=== PATIENT | male | born 2000 | race Caucasian/White ===

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

== ENCOUNTER 2021-01-29 17:12 | Emergency (ER) | payer OTHER ==
[~2021-01-29] VITALS: Ht 175.3 cm; Wt 65.4 kg
[2021-01-29 17:13] VITALS: BP 121/75
== END 2021-01-29 19:23 | disposition left against medical advice (07) ==
LOC: M ED 17:12
DX: Z53.21 Procedure and treatment not carried out due to patient leaving prior to being seen by health care provider (principal)

== ENCOUNTER → 2021-08-23 | Outpatient (CLI) | payer OTHER, MEDICAID | LOC: M LABSMTC 10:01 | PROVIDERS: ATTEND Anesthesiology | DX: Z01.812 Encounter for preprocedural laboratory examination (principal); Z20.822 Contact with and (suspected) exposure to COVID-19 ==

== ENCOUNTER 2021-08-28 10:57 | Day surgery (SDC) | payer OTHER ==
[~2021-08-28] VITALS: Ht 175.3 cm; Wt 60.8 kg
[2021-08-28] MEDS ORDERED: propofoL 200 MG/20 ML VIAL As Ordered ONE ×2 (11:39→12:31)
[2021-08-28] MEDS ORDERED: LIDOCAINE 2% 100MG/5ML SDV (FOR ANES.) As Ordered ONE ×2 (11:40→12:08)
[2021-08-28] MEDS ORDERED: propofoL 500 MG/50 ML VIAL As Ordered ONE ×2 (12:33→13:05)
[2021-08-28] MEDS ORDERED: NS 1,000 ML IV ONE (13:00)
[2021-08-28 14:21] VITALS: BP 104/67
== END 2021-08-28 14:24 | disposition home or self-care (01) ==
LOC: M OPP 10:57
PROVIDERS: ATTEND Internal Medicine Gastroenterology
DX: K64.8 Other hemorrhoids (principal); K92.1 Melena; R63.4 Abnormal weight loss; K29.70 Gastritis, unspecified, without bleeding; Z91.013 Allergy to seafood; Z91.048 Other nonmedicinal substance allergy status

== ENCOUNTER 2021-11-21 22:51 | Emergency (ER) | payer OTHER ==
[~2021-11-21] VITALS: Ht 177.8 cm; Wt 61.8 kg
[2021-11-21 22:52] VITALS: BP 136/91
[2021-11-22 00:10] LABS: ALBUMIN 4.9 GM/DL (3.2-5.2); ALT/SGPT 17 U/L (12-78); BILIRUBIN,DIRECT 0.2 MG/DL (0.0-0.2); BILIRUBIN,TOTAL 0.7 MG/DL (0.2-1.0); BLOOD UREA NITROGEN 12 MG/DL (7-18); CALCIUM LEVEL 10.1 MG/DL (8.5-10.1); CARBON DIOXIDE LEVEL 28 MEQ/L (21-32); CHLORIDE LEVEL 105 MEQ/L (98-107); CREATININE FOR GFR 0.96 MG/DL (0.70-1.30); GLUCOSE, FASTING 94 MG/DL (70-100); LIPASE 115 U/L (73-393); SODIUM LEVEL 140 MEQ/L (136-145); TOTAL PROTEIN 8.3 GM/DL (6.4-8.2)
[2021-11-22 00:28] LABS: BASO # 0.1 10^3/uL (0.0-0.2); BASO % 0.6 % (0.0-1.0); HEMATOCRIT 48.3 % (42.0-52.0); HEMOGLOBIN 16.5 g/dl (13.5-17.5); LYMPH # 1.9 10^3/uL (1.5-5.0); LYMPH % 18.9 % (24.0-44.0); MEAN CORPUSCULAR HEMOGLOBIN 29.7 pg (27.0-33.0); MEAN CORPUSCULAR HGB CONC 34.2 g/dl (32.0-36.5); MONO # 0.8 10^3/uL (0.0-0.8); MONO % 7.6 % (2.0-8.0); NEUTROPHILS # 7.3 10^3/uL (1.5-8.5); NEUTROPHILS % 72.7 % (36.0-66.0); PLATELET COUNT, AUTOMATED 223 10^3/uL (150-450); RED BLOOD COUNT 5.55 10^6/uL (4.30-6.10); WHITE BLOOD COUNT 10.1 10^3/uL (4.0-10.0)
[2021-11-22] MEDS ORDERED: ONDA4TAB6 PO (11:55)
== END 2021-11-22 01:05 | disposition left against medical advice (07) ==
LOC: M ED 22:51
DX: Z53.21 Procedure and treatment not carried out due to patient leaving prior to being seen by health care provider (principal)

== ENCOUNTER 2021-11-22 06:50 | Emergency (ER) | payer OTHER ==
[~2021-11-22] VITALS: Ht 170.2 cm; Wt 61.4 kg
[2021-11-22 06:52] VITALS: BP 129/75
[2021-11-22] MEDS ORDERED: NS 1,000 ML IV ONE (09:10)
[2021-11-22] MEDS ORDERED: ONDANSETRON 4MG/2ML VIAL IV ONE (09:10)
[2021-11-22] MEDS ORDERED: KETOROLAC 30 MG/ML 1ML VIAL IV ONE (09:25)
[2021-11-22 09:50] LABS: BASO # 0.1 10^3/uL (0.0-0.2); BASO % 0.8 % (0.0-1.0); HEMOGLOBIN 16.4 g/dl (13.5-17.5); LYMPH # 1.2 10^3/uL (1.5-5.0); LYMPH % 16.1 % (24.0-44.0); MEAN CORPUSCULAR HEMOGLOBIN 29.4 pg (27.0-33.0); MEAN CORPUSCULAR HGB CONC 34.2 g/dl (32.0-36.5); MEAN CORPUSCULAR VOLUME 86.2 fl (80.0-96.0); MONO # 0.7 10^3/uL (0.0-0.8); MONO % 8.9 % (2.0-8.0); NEUTROPHILS # 5.5 10^3/uL (1.5-8.5); NEUTROPHILS % 73.9 % (36.0-66.0); PLATELET COUNT, AUTOMATED 212 10^3/uL (150-450); RED BLOOD COUNT 5.57 10^6/uL (4.30-6.10); WHITE BLOOD COUNT 7.4 10^3/uL (4.0-10.0)
[2021-11-22 10:17] LABS: ALBUMIN 4.9 GM/DL (3.2-5.2); ALT/SGPT 16 U/L (12-78); BILIRUBIN,DIRECT 0.2 MG/DL (0.0-0.2); BILIRUBIN,TOTAL 0.7 MG/DL (0.2-1.0); BLOOD UREA NITROGEN 14 MG/DL (7-18); CALCIUM LEVEL 10.3 MG/DL (8.5-10.1); CARBON DIOXIDE LEVEL 27 MEQ/L (21-32); CHLORIDE LEVEL 104 MEQ/L (98-107); CREATININE FOR GFR 0.91 MG/DL (0.70-1.30); GLUCOSE, FASTING 82 MG/DL (70-100); POTASSIUM SERUM 3.9 MEQ/L (3.5-5.1); SODIUM LEVEL 140 MEQ/L (136-145); TOTAL PROTEIN 8.2 GM/DL (6.4-8.2)
[2021-11-22 10:31] LABS: ERYTHROCYTE SEDIMENTATION RATE 1 mm/hr (0-15)
[2021-11-22] MEDS ORDERED: ISOVUE-370 76% 100ML VIAL As Ordered ONE (11:12)
[2021-11-22] MEDS ORDERED: ONDA4TAB6 PO (11:55)
== END 2021-11-22 13:46 | disposition home or self-care (01) ==
LOC: M ED 06:50
DX: R10.9 Unspecified abdominal pain (principal); F17.290 Nicotine dependence, other tobacco product, uncomplicated; F12.10 Cannabis abuse, uncomplicated; Z91.89 Other specified personal risk factors, not elsewhere classified; Z91.013 Allergy to seafood
CPT/HCPCS: 71046; 74177; 80048; 80076; 85025; 85652; 86140; 93005; 96361; 96374; 96375; 99284; J1885; J2405; Q9967

== ENCOUNTER → 2025-06-15 | Outpatient (REF) | payer OTHER ==
[~2025-06-15] MED LIST changes: +ONDA-282 PO
[2025-06-15 12:49] LABS: APPEARANCE, URINE CLEAR (CLEAR); BACTERIA, URINE AUTO NEGATIVE (NEGATIVE); BILIRUBIN, URINE AUTO NEGATIVE (NEGATIVE); BLOOD, URINE BLOOD NEGATIVE (NEGATIVE); GLUCOSE, URINE (UA) AUTO NEGATIVE (NEGATIVE); KETONE, URINE AUTO NEGATIVE (NEGATIVE); LEUKOCYTE ESTERASE, URINE AUTO NEGATIVE (NEGATIVE); MUCUS, URINE MODERATE (NEGATIVE); NITRITE, URINE AUTO NEGATIVE (NEGATIVE); PROTEIN, URINE AUTO NEGATIVE (NEGATIVE); RBC, URINE AUTO 0 /HPF (0-3); SPECIFIC GRAVITY URINE AUTO 1.027 (1.002-1.035); SQUAMOUS EPITHELIAL CELL UR AU 0 /HPF (0-6); UROBILINOGEN, URINE AUTO 0.2 mg/dL (0.0-2.0); WBC, URINE AUTO 0 /HPF (0-3)
[2025-06-15 14:34] LABS: BASO # 0.1 10^3/uL (0.0-0.2); BASO % 0.9 % (0.0-1.0); EOS # 0.1 10^3/uL (0.0-0.5); EOS % 0.9 % (0.0-3.0); LYMPH # 2.2 10^3/uL (1.5-5.0); LYMPH % 29.3 % (24.0-44.0); MONO # 0.6 10^3/uL (0.0-0.8); MONO % 8.4 % (2.0-8.0); NEUTROPHILS # 4.5 10^3/uL (1.5-8.5); NEUTROPHILS % 60.2 % (36.0-66.0); PLATELET COUNT, AUTOMATED 232 10^3/uL (150-450)
[2025-06-15 14:54] LABS: ALT/SGPT 25 U/L (7.0-40); AST/SGOT 20 U/L (<34); CALCIUM LEVEL 9.2 MG/DL (8.5-10.1); CARBON DIOXIDE LEVEL 32 MMOL/L (20-31); CHLORIDE LEVEL 107 MMOL/L (98-107); CREATININE FOR GFR 0.75 MG/DL (0.70-1.30); GLOMERULAR FILTRATION RATE > 90.0 (>60); POTASSIUM SERUM 4.5 MMOL/L (3.5-5.1); SODIUM LEVEL 143 MMOL/L (136-145)
== END ==
LOC: M LAB REF 11:59
PROVIDERS: ATTEND Pediatrics
DX: R10.A2 Flank pain, left side (principal); G89.29 Other chronic pain

== ENCOUNTER → 2025-06-19 | Outpatient (CLI) | payer BC, SELFPAY | LOC: M RAD 12:20 | PROVIDERS: ATTEND Pediatrics | DX: R10.A2 Flank pain, left side (principal); R07.89 Other chest pain ==